=== PATIENT | male | born 1995 | race Caucasian/White ===

== ENCOUNTER 2019-12-02 08:47 | Emergency (ER) | payer OTHER ==
[~2019-12-02] VITALS: Ht 180.3 cm; Wt 110.7 kg
[2019-12-02] MEDS ORDERED: BUSPIRONE HCL10 MG PO (08:59)
[2019-12-02] MEDS ORDERED: PROZAC20 M1 PO (08:59)
[2019-12-02] MEDS ORDERED: CIPROFLOXACIN500 M1 PO (09:15)
[2019-12-02] MEDS ORDERED: TRAMADOL 50 MG50 MG PO (09:15)
[2019-12-02 10:09] VITALS: BP 160/82
== END 2019-12-02 10:10 | disposition home or self-care (01) ==
LOC: M.ERS 08:47
DX: S91.331A Puncture wound without foreign body, right foot, initial encounter (principal); Z79.899 Other long term (current) drug therapy; W22.8XXA Striking against or struck by other objects, initial encounter; Y93.89 Activity, other specified; Y92.69 Other specified industrial and construction area as the place of occurrence of the external cause; Y99.9 Unspecified external cause status

== ENCOUNTER 2019-12-23 11:44 | Emergency (ER) | payer OTHER ==
[~2019-12-23] VITALS: Ht 180.3 cm; Wt 106.6 kg
[~2019-12-23 11:44] MED LIST: BUSPIRONE HCL10 MG PO; CIPROFLOXACIN500 M1 PO; PROZAC20 M1 PO; TRAMADOL 50 MG50 MG PO
[2019-12-23 12:17] VITALS: BP 152/87
== END 2019-12-23 12:17 | disposition home or self-care (01) ==
LOC: M.ERS 11:44
DX: H92.01 Otalgia, right ear (principal)

== ENCOUNTER 2020-07-28 17:41 | Emergency (ER) | payer OTHER ==
[~2020-07-28] VITALS: Ht 180.3 cm; Wt 107.0 kg
[2020-07-28 18:12] LABS: ABSOLUTE BASOPHILS 0.1 thou/uL (0.0-0.2); ABSOLUTE EOSINOPHILS 0.2 thou/uL (0.0-0.7); ABSOLUTE LYMPHOCYTES 3.8 thou/uL (0.8-5.3); ABSOLUTE MONOCYTES 0.7 thou/uL (0.0-1.2); ABSOLUTE NEUTROPHILS 7.8 thou/uL (1.6-8.1); EOSINOPHILS 1.8 %; HEMATOCRIT 47.5 % (42.0-52.0); HEMOGLOBIN 15.6 gm/dL (14.0-18.0); LYMPHOCYTES 29.8 %; MCHC 32.8 g/dL (28.0-37.0); MCV 79.4 fL (80.0-100.0); MONOCYTES 5.9 %; MPV 7.9 fl. (7.2-11.1); NUCLEATED RBCS 0 /100WBC; PLATELET COUNT* 314 thou/uL (150-400); POLYS 61.5 %; RBC 5.98 mil/uL (4.50-6.00); RDW-CV 13.1 % (10.5-14.5); WBC 12.6 thou/uL (4.0-11.0)
[2020-07-28 18:21] LABS: CREATININE 0.9 mg/dL (0.6-1.3); POTASSIUM 4.3 mmol/L (3.5-5.1)
[2020-07-28 18:32] LABS: ALBUMIN 4.5 g/dL (3.4-5.0); MAGNESIUM 2.1 mg/dL (1.8-2.4); TOTAL BILIRUBIN 0.4 mg/dL (<0.1-1.0); TOTAL PROTEIN 8.8 g/dL (6.4-8.2)
[2020-07-28 21:35] VITALS: BP 155/79
--- NOTE | 2020-07-31 10:47 | EKG ---
[place] [address] ELECTROCARDIOGRAM REPORT Name: SARAH CONNELL Room: [facility]#: [id number] Admission: 07/28/20 Attend Phys: Discharge: 07/28/20 Date of : 89 Date of Service: 07/28/20 1748 Report #: [id number] THIS REPORT FOR: //name// [facility] ED Test Date: 2020-07-28 Test Time: 17:48:00 Pat Name: SARAH CONNELL Department: Room: Gender: [employer]ician: : 1995 Requested By: Josias Maloney Order Number: [id number] MD: Arnaldo Jasso Measurements Intervals [place] Rate: 88 P: -3 GA: 127 QRS: 103 QRSD: 167 T: -3 QT: 348 QTc: 421 Interpretive Statements Sinus rhythm Consider right atrial enlargement Nonspecific intraventricular conduction delay Baseline wander in lead(s) V2 No previous ECG available for comparison Electronically Signed On 07-31-2020 10:47:27 CDT by Arnaldo Jasso [email or web address] <ELECTRONICALLY SIGNED> By: Arnaldo Jasso MD, [facility] 07/31/20 1047 1748 1748 Arnaldo Jasso MD, [facility] /EPI
== END 2020-07-28 21:36 | disposition home or self-care (01) ==
LOC: M.ERS 17:41
PROVIDERS: Emergency Medicine Emergency Medical Services
DX: R07.89 Other chest pain (principal)